=== PATIENT | female | born 1940 | race American Indian/Alaskan Native ===

== ENCOUNTER 2017-08-16 18:27 | Inpatient (IN) | payer MEDICARE ==
[2017-08-16 19:20] LABS: Basophils % (Auto) 0.5 % (0.0-1.8); Eosinophils % (Auto) 1.7 % (0.0-4.3); Hematocrit 42.4 % (30.3-42.9); Hemoglobin 14.4 gm/dl (10.1-14.3); Mean Corpuscular HGB Conc 34 % (30-34); Mean Corpuscular Hemoglobin 30 pg (28-32); Mean Corpuscular Volume 89 fl (79-97); Platelet Count 213 K/mm3 (140-440); Red Blood Count 4.75 M/mm3 (3.65-5.03); Red Cell Distribution Width 14.6 % (13.2-15.2); White Blood Count 7.1 K/mm3 (4.5-11.0)
[2017-08-16 19:38] LABS: Calcium 9.3 mg/dL (8.4-10.2); Chloride 92.4 mmol/L (98-107); Potassium 3.2 mmol/L (3.6-5.0)
[2017-08-16 20:02] LABS: Creatine Kinase MB 7.1 ng/mL (0.0-4.0)
[2017-08-16 20:22] LABS: INR 0.99 (0.87-1.13)
[2017-08-16 20:23] LABS: Partial Thromboplastin Time 28.1 Sec. (24.2-36.6)
--- NOTE | 2017-08-16 21:33 | XRay Report ---
FINAL REPORT PROCEDURE: XR CHEST ROUTINE 2V TECHNIQUE: PA and lateral chest radiographs were obtained. CPT 90296 HISTORY: chest pain COMPARISON: No prior studies are available for comparison. FINDINGS: Heart: Normal. Mediastinum/Vessels: Normal. Lungs/Pleural space: Lungs are clear and expanded. There are no infiltrates, effusions or pneumothoraces.. Bony thorax: No acute osseous abnormality. Other: IMPRESSION: There is no acute cardiopulmonary abnormality..
--- NOTE | 2017-08-16 22:18 | Emergency Department Report ---
ED Chest Pain HPI - General Chief Complaint: Chest Pain Stated Complaint: CHEST PAIN Time Seen by Provider: 08/16/17 22:12 Source: patient Mode of arrival: Ambulatory Limitations: No Limitations - History of Present Illness Initial Comments: Patient is a 77-year-old female that presents to the ER with complaints of chest pain shortness of breath and dizziness 1 week. Patient states her chest pain is going down her left arm.. He can also states she received a call from her doctor's office saying that she had a troponin of 7 and to come to the emergency room for further evaluation. MD Complaint: chest pain -: Gradual, days(s) Onset: during rest, during exertion Pain Location: substernal, left chest Pain Radiation: LUE Severity: moderate Severity scale (0 -10): 5 Quality: tightness, aching, heaviness, squeezing Consistency: constant Improves With: rest Worsens With: exertion Treatments Prior to Arrival: aspirin - Related Data On Oral Contraceptives: No Allergies Allergy/AdvReac Type Severity Reaction Status Date / Time No Known Allergies Allergy Unverified 08/16/17 18:48 Heart Score - HEART Score History: Slightly suspicious EKG: Normal Age: > 65 Risk factors: 1-2 risk factors Troponin: 1-3x normal limit HEART Score: 4 ED Review of Systems ROS: Stated complaint: CHEST PAIN Other details as noted in HPI Constitutional: no symptoms reported, see HPI Eyes: as per HPI ENT: as per HPI Respiratory: shortness of breath, SOB with exertion, SOB at rest Cardiovascular: chest pain, dyspnea on exertion Endocrine: no symptoms reported Gastrointestinal: as per HPI Genitourinary: as per HPI Musculoskeletal: as per HPI Skin: as per HPI Neurological: as per HPI Psychiatric: as per HPI ED Past Medical Hx - Past Medical History Previous Medical History?: Yes Hx Hypertension: Yes Hx Asthma: Yes - Surgical History Past Surgical History?: Yes Additional Surgical History: breast reduction 1998; - Social History Smoking Status: Never Smoker Substance Use Type: None ED Physical Exam - General Limitations: No Limitations General appearance: alert, in no apparent distress - Head Head exam: Present: atraumatic, normocephalic - Eye Eye exam: Present: normal appearance - ENT ENT exam: Present: normal exam, mucous membranes moist - Neck Neck exam: Present: normal inspection - Respiratory Respiratory exam: Present: normal lung sounds bilaterally. Absent: respiratory distress - Cardiovascular Cardiovascular Exam: Present: regular rate, normal rhythm. Absent: systolic murmur, diastolic murmur, rubs, gallop - GI/Abdominal GI/Abdominal exam: Present: soft, normal bowel sounds - Extremities Exam Extremities exam: Present: normal inspection - Back Exam Back exam: Present: normal inspection - Neurological Exam Neurological exam: Present: alert, oriented X3 - Psychiatric Psychiatric exam: Present: normal affect, normal mood - Skin Skin exam: Present: warm, dry, intact, normal color. Absent: rash ED Course Vital Signs 08/16/17 08/16/17 08/16/17 18:48 21:05 22:06 Temperature 98.5 F 98.4 F Pulse Rate 88 68 Respiratory 16 18 Rate Blood Pressure 148/77 153/83 Blood Pressure 153/83 [Left] O2 Sat by Pulse 93 94 Oximetry 08/16/17 08/16/17 08/16/17 22:10 22:15 22:21 Temperature Pulse Rate 65 66 Respiratory 29 H 26 H Rate Blood Pressure 153/83 153/83 153/83 Blood Pressure [Left] O2 Sat by Pulse 96 96 96 Oximetry 08/16/17 08/16/17 08/16/17 22:25 22:31 22:35 Temperature Pulse Rate 67 67 Respiratory 23 15 Rate Blood Pressure 153/83 176/89 176/89 Blood Pressure [Left] O2 Sat by Pulse 96 93 95 Oximetry 08/16/17 08/16/17 08/16/17 22:41 22:45 22:51 Temperature Pulse Rate 68 63 67 Respiratory 24 32 H 13 Rate Blood Pressure 176/89 176/89 153/83 Blood Pressure [Left] O2 Sat by Pulse 95 95 97 Oximetry 08/16/17 08/16/17 08/16/17 22:55 23:00 23:05 Temperature Pulse Rate 79 71 68 Respiratory 32 H 29 H 27 H Rate Blood Pressure 153/83 175/94 175/94 Blood Pressure [Left] O2 Sat by Pulse 93 90 96 Oximetry 08/16/17 08/16/17 08/16/17 23:11 23:15 23:21 Temperature Pulse Rate 79 76 79 Respiratory 29 H 30 H 20 Rate Blood Pressure 175/94 175/94 175/94 Blood Pressure [Left] O2 Sat by Pulse 94 94 93 Oximetry 08/16/17 08/16/17 23:25 23:30 Temperature Pulse Rate 69 65 Respiratory 34 H 16 Rate Blood Pressure 175/94 166/92 Blood Pressure [Left] O2 Sat by Pulse 94 91 Oximetry ED Medical Decision Making - Lab Data Result diagrams: 08/16/17 19:05 08/16/17 19:05 - EKG Data EKG shows normal: sinus rhythm Rate: normal - EKG Data Interpretation: no acute changes, normal EKG - Radiology Data Radiology results: image reviewed interpreted by me: No acute findings on chest x-ray - Medical Decision Making Patient to be admitted to hospital. Discussed case with hospitalist. Also discussed case with on-call optical coating technician - Differential Diagnosis mi, angina, sob, cp. Critical care attestation.: If time is entered above; I have spent that time in minutes in the direct care of this critically ill patient, excluding procedure time. ED Disposition Clinical Impression: Chest pain, SOB (shortness of breath), Dizziness, Elevated troponin, NSTEMI ( non-ST elevated myocardial infarction) Disposition: OP ADMIT IP TO THIS HOSP Is pt being admited?: Yes Does the pt Need Aspirin: No Condition: Critical
[2017-08-16] MEDS ORDERED: ASPIRIN PO ONE (23:09)
--- NOTE | 2017-08-16 23:35 | History and Physical Report ---
History of Present Illness Date of examination: 08/16/17 Chief complaint: chest pain / dizziness / SOB History of present illness: Patient is a 77-year-old female that presents to the ER with complaints of chest pain shortness of breath and dizziness 1 week. Patient states her chest pain is going down her left arm. She had been seen at her primary care physician's office yesterday and She had labs drawn. She was called by her doctor's office and told that her troponin was greater than 7 and she had to go to the emergency room urgently. She states that she has been feeling bad for the past 1 week with the intermittent epigastric abdominal pain nausea and dizziness for the past 1 week. The periods of a disease nonspecific no aggravation or relieving factors she does say that she feels much better when she is resting. There is no set pattern to her symptoms otherwise but since yesterday she states that her left arm has been tingling and hardening and describes the pain as dull achy type of pain about 4 out of 10 in severity. Past History Past Medical History: hypertension, other (asthma) Past Surgical History: Other (breast reduction surgery in 1998) Social history: no significant social history. denies: smoking, alcohol abuse, prescription drug abuse Medications and Allergies Allergies Allergy/AdvReac Type Severity Reaction Status Date / Time No Known Allergies Allergy Unverified 08/16/17 18:48 Review of Systems All systems: negative (as mentioned in HPI) Exam - Physical Exam Narrative exam: General - the patient is awake alert oriented to time place and person evidence of acute distress HEENT - head is atraumatic normocephalic pupils equal round reactive to light and accommodation extraocular movements intact oral mucosa moist oropharynx. Neck is supple no JVD no thyromegaly or lymphadenopathy no carotid bruit Heart - regular rate and rhythm no murmurs or gallops PMI not displaced Lungs - clear to auscultation bilaterally nonlabored breathing normal chest wall expansion Abdomen - is obese soft nondistended nontender normoactive bowel sounds no hepatosplenomegaly no abdominal masses or bruit appreciated Extremities - no cyanosis or edema Musculoskeletal system - normal range of movement all joints no obvious deformity or tenderness to palpation Neurological - grossly intact and nonfocal Skin - warm and dry no rashes or bruises Psychiatric - appropriate mood and affect Vascular - system no lymphadenopathy distal pulses 2+ bilaterally - Constitutional Vitals: Temp Pulse Resp BP Pulse Ox 98.4 F 68 18 153/83 94 08/16/17 21:05 08/16/17 21:05 08/16/17 21:05 08/16/17 21:05 08/16/17 21:05 Results - Labs CBC & Chem 7: 08/16/17 19:05 08/16/17 19:05 Labs: Laboratory Last Values WBC 7.1 K/mm3 (4.5-11.0) 08/16/17 19:05 RBC 4.75 M/mm3 (3.65-5.03) 08/16/17 19:05 Hgb 14.4 gm/dl (10.1-14.3) H 08/16/17 19:05 Hct 42.4 % (30.3-42.9) 08/16/17 19:05 MCV 89 fl (79-97) 08/16/17 19:05 MCH 30 pg (28-32) 08/16/17 19:05 MCHC 34 % (30-34) 08/16/17 19:05 RDW 14.6 % (13.2-15.2) 08/16/17 19:05 Plt Count 213 K/mm3 (140-440) 08/16/17 19:05 Lymph % (Auto) 38.1 % (13.4-35.0) H 08/16/17 19:05 [place] % (Auto) 6.5 % (0.0-7.3) 08/16/17 19:05 Eos % (Auto) 1.7 % (0.0-4.3) 08/16/17 19:05 Baso % (Auto) 0.5 % (0.0-1.8) 08/16/17 19:05 Lymph # 2.7 K/mm3 (1.2-5.4) 08/16/17 19:05 [place] # 0.5 K/mm3 (0.0-0.8) 08/16/17 19:05 Eos # 0.1 K/mm3 (0.0-0.4) 08/16/17 19:05 Baso # 0.0 K/mm3 (0.0-0.1) 08/16/17 19:05 Seg Neutrophils % 53.2 % (40.0-70.0) 08/16/17 19:05 Seg Neutrophils # 3.8 K/mm3 (1.8-7.7) 08/16/17 19:05 PT 13.6 Sec. (12.2-14.9) 08/16/17 19:05 INR 0.99 (0.87-1.13) 08/16/17 19:05 APTT 28.1 Sec. (24.2-36.6) 08/16/17 19:05 Sodium 137 mmol/L (137-145) 08/16/17 19:05 Potassium 3.2 mmol/L (3.6-5.0) L 08/16/17 19:05 Chloride 92.4 mmol/L (98-107) L 08/16/17 19:05 Carbon Dioxide 30 mmol/L (22-30) 08/16/17 19:05 Anion Gap 18 mmol/L 08/16/17 19:05 BUN 18 mg/dL (7-17) H 08/16/17 19:05 Creatinine 1.2 mg/dL (0.7-1.2) 08/16/17 19:05 Estimated GFR 53 ml/min 08/16/17 19:05 BUN/Creatinine Ratio 15 % 08/16/17 19:05 Glucose 155 mg/dL (65-100) H 08/16/17 19:05 Calcium 9.3 mg/dL (8.4-10.2) 08/16/17 19:05 Total Creatine Kinase 156 units/L (30-135) H 08/16/17 19:05 CK-MB (CK-2) 7.1 ng/mL (0.0-4.0) H 08/16/17 19:05 CK-MB (CK-2) Rel Index 4.5 (0-4) H 08/16/17 19:05 Troponin T 0.421 ng/mL (0.00-0.029) H* 08/16/17 19:05 NT-Pro-B Natriuret Pep 1043 pg/mL (0-900) H 08/16/17 19:05 Triglycerides 150 mg/dL (2-149) H 08/16/17 19:05 Cholesterol 209 mg/dL (50-199) H 08/16/17 19:05 LDL Cholesterol Direct 97 mg/dL (50-130) 08/16/17 19:05 HDL Cholesterol 82 mg/dL (40-59) H 08/16/17 19:05 Cholesterol/HDL Ratio 2.54 % 08/16/17 19:05 - Imaging and Cardiology Imaging and Cardiology: EKG showing normal sinus rhythm negative for acute ischemia or other arrhythmia some Q waves in anterior leads and age indeterminate anterior infarct otherwise nonspecific borderline EKG Chest x-ray showed no acute process Assessment and Plan Assessment and plan: Assessment and plan - * Non-ST elevation SD with elevated troponin * Chest pain / shortness of breath likely secondary to above * Hyperglycemia without history of diabetes * Hypokalemia - replace and monitor * Hypertension blood pressure is currently borderline low * Obesity Plan - We'll admit the patient to medical floor with the cardiac telemetry Check serial cardiac enzymes We will follow the chest pain protocol, and non-ST elevation SD protocol patient was discussed with cardiology by the ER physician and she will be started on the heparin drip and aspirin will be added currently no clinical evidence of acute congestive heart failure. We will hold off on Lasix for now as per cardiology recommendations. Hold off on her home antihypertensive medications Will check lipid panel and a hemoglobin A1c monitor CBC and electrolytes Replace electrolytes when necessary as per protocol DVT GI prophylaxis as altered Monitor and follow the patient closely Advance Directives: No VTE prophylaxis?: Chemical, Mechanical Plan of care discussed with patient/family: Yes
[2017-08-17] MEDS ORDERED: AMBIEN PO PRN (01:40)
[2017-08-17] MEDS ORDERED: DULCOLAX PR PRN (01:40)
[2017-08-17] MEDS ORDERED: TYLENOL PO PRN (01:40)
[2017-08-17] MEDS ORDERED: SODIUM CHLORIDE FLUSH SYRINGE 10 ML IV PRN (01:40)
[2017-08-17] MEDS ORDERED: PROVENTIL IH PRN (01:40)
[2017-08-17] MEDS ORDERED: NITROSTAT SL PRN (01:40)
[2017-08-17] MEDS ORDERED: ALUM-MAG HYDROX-SIMETH 200-200-20MG/5ML PO PRN (01:40)
[2017-08-17] MEDS ORDERED: MILK OF MAGNESIA PO PRN (01:40)
[2017-08-17] MEDS ORDERED: ZOFRAN IV PRN (01:40)
[2017-08-17] MEDS ORDERED: NACL 0.9% 1000 ML 1,000 ML ONE (02:35)
[2017-08-17] MEDS ORDERED: MORPHINE ONE (02:37)
[2017-08-17] MEDS: MORPHINE IV PRN ×2 (02:39→04:35)
[2017-08-17] MEDS ORDERED: APRESOLINE IV PRN (02:48)
[2017-08-17] MEDS ORDERED: HEPARIN 10,000 UNITS/10 ML IV ONE (02:52)
[2017-08-17] MEDS: HEPARIN/ 0.45% NACL-25,000 UNIT/500 ML 25,000 UNIT/500 ML BAG IV SCH (04:20)
[2017-08-17] MEDS: NACL 0.9% 1000 ML 1,000 ML IV SCH (04:20)
[2017-08-17 07:32] LABS: Hematocrit 39.8 % (30.3-42.9); Hemoglobin 13.2 gm/dl (10.1-14.3)
[2017-08-17 07:43] LABS: INR 1.1 (0.87-1.13)
[2017-08-17 08:48] LABS: Partial Thromboplastin Time 121.8 Sec. (24.2-36.6)
[2017-08-17] MEDS: ZESTRIL PO SCH (10:00)
[2017-08-17] MEDS: PROTONIX PO SCH (10:00)
--- NOTE | 2017-08-17 17:15 | Progress Note ---
Assessment and Plan Assessment and plan: 77 years old obese -[place] Island[place] female weight hypertension admitted for chest pain 1. Non-STEMI EKG with no acute ischemic changes, but troponin elevated, and trending up Started on heparin drip along complete antiplatelet therapy, statin, IMANI inhibitor; no beta brenden due to bradycardia; sublingual nitroglycerin as needed Cardiology consulted and scheduled for cardiac cath in a.m. 2. Hypertension On lisinopril and prn IV hydralazine Monitor BP closely 3. Hyperglycemia Without the diagnosis of diabetes Likely stress reaction Monitor BS SSI as needed 4. Hypokalemia Replete and recheck 5. Obesity Consulted regarding importance of losing weight 6. DVT prophylaxis Currently on heparin drip for #1 History Interval history: No chest pain at this time; scheduled for cardiac cath in a.m. Hospitalist Physical - Constitutional Vitals: Temp Pulse Resp BP Pulse Ox 97.6 F 49 L 32 H 119/65 98 08/17/17 09:00 08/17/17 09:00 08/17/17 10:00 08/17/17 09:00 08/17/17 10:00 General appearance: Present: no acute distress, obese - EENT Eyes: Present: PERRL, EOM intact. Absent: scleral icterus, conjunctival injection - Neck Neck: Present: supple, normal ROM. Absent: masses or JVD - Respiratory Respiratory effort: normal Respiratory: bilateral: CTA, negative: rales, rhonchi - Cardiovascular Rhythm: other (bradycardic) Heart Sounds: Present: S1 & S2. Absent: systolic murmur - Extremities Extremities: no ischemia - Abdominal General gastrointestinal: soft, non-tender, non-distended, normal bowel sounds - Psychiatric Psychiatric: cooperative - Neurologic Neurologic: CNII-XII intact, no focal deficits Results - Labs CBC & Chem 7: 08/17/17 06:56 08/16/17 19:05 Labs: Laboratory Last Values WBC 7.1 K/mm3 (4.5-11.0) 08/16/17 19:05 RBC 4.75 M/mm3 (3.65-5.03) 08/16/17 19:05 Hgb 13.2 gm/dl (10.1-14.3) 08/17/17 06:56 Hct 39.8 % (30.3-42.9) 08/17/17 06:56 MCV 89 fl (79-97) 08/16/17 19:05 MCH 30 pg (28-32) 08/16/17 19:05 MCHC 34 % (30-34) 08/16/17 19:05 RDW 14.6 % (13.2-15.2) 08/16/17 19:05 Plt Count 211 K/mm3 (140-440) 08/17/17 06:56 Lymph % (Auto) 38.1 % (13.4-35.0) H 08/16/17 19:05 [place] % (Auto) 6.5 % (0.0-7.3) 08/16/17 19:05 Eos % (Auto) 1.7 % (0.0-4.3) 08/16/17 19:05 Baso % (Auto) 0.5 % (0.0-1.8) 08/16/17 19:05 Lymph # 2.7 K/mm3 (1.2-5.4) 08/16/17 19:05 [place] # 0.5 K/mm3 (0.0-0.8) 08/16/17 19:05 Eos # 0.1 K/mm3 (0.0-0.4) 08/16/17 19:05 Baso # 0.0 K/mm3 (0.0-0.1) 08/16/17 19:05 Seg Neutrophils % 53.2 % (40.0-70.0) 08/16/17 19:05 Seg Neutrophils # 3.8 K/mm3 (1.8-7.7) 08/16/17 19:05 PT 14.8 Sec. (12.2-14.9) 08/17/17 06:56 INR 1.10 (0.87-1.13) 08/17/17 06:56 APTT 121.8 Sec. (24.2-36.6) H* 08/17/17 06:56 Heparin Anti-Xa Level 0.68 U.I./ml (0.3-0.7) 08/17/17 10:28 Sodium 137 mmol/L (137-145) 08/16/17 19:05 Potassium 3.2 mmol/L (3.6-5.0) L 08/16/17 19:05 Chloride 92.4 mmol/L (98-107) L 08/16/17 19:05 Carbon Dioxide 30 mmol/L (22-30) 08/16/17 19:05 Anion Gap 18 mmol/L 08/16/17 19:05 BUN 18 mg/dL (7-17) H 08/16/17 19:05 Creatinine 1.2 mg/dL (0.7-1.2) 08/16/17 19:05 Estimated GFR 53 ml/min 08/16/17 19:05 BUN/Creatinine Ratio 15 % 08/16/17 19:05 Glucose 155 mg/dL (65-100) H 08/16/17 19:05 Hemoglobin A1c 5.8 % (4-6) 08/17/17 01:42 Calcium 9.3 mg/dL (8.4-10.2) 08/16/17 19:05 Total Creatine Kinase 156 units/L (30-135) H 08/16/17 19:05 CK-MB (CK-2) 7.1 ng/mL (0.0-4.0) H 08/16/17 19:05 CK-MB (CK-2) Rel Index 4.5 (0-4) H 08/16/17 19:05 Troponin T 0.674 ng/mL (0.00-0.029) H* 08/17/17 06:56 NT-Pro-B Natriuret Pep 1043 pg/mL (0-900) H 08/16/17 19:05 Triglycerides 150 mg/dL (2-149) H 08/16/17 19:05 Cholesterol 209 mg/dL (50-199) H 08/16/17 19:05 LDL Cholesterol Direct 97 mg/dL (50-130) 08/16/17 19:05 HDL Cholesterol 82 mg/dL (40-59) H 08/16/17 19:05 Cholesterol/HDL Ratio 2.54 % 08/16/17 19:05 - Imaging and Cardiology EKG: image reviewed Chest x-ray: image reviewed
--- NOTE | 2017-08-17 19:01 | Consultation ---
CARDIOLOGY CONSULTATION REASON FOR CONSULTATION: Advice and opinion regarding abnormal troponin. HISTORY OF PRESENT ILLNESS: The patient is a very pleasant 77-year-old female seen on telemetry, is at bedside. She has a history of hypertension, asthma, and hyperlipidemia. Her primary care physician is at [facility]. Seen on telemetry. No chest pain, has not had chest pain since she is brought here, was apparently and had labs drawn at her primary care office and had an abnormal troponin and sent to the Emergency Room. No syncope or presyncope. No fevers, chills, nausea or vomiting. She feels fine, watching television. PAST MEDICAL HISTORY: As aforementioned. FAMILY HISTORY: No family history of premature coronary disease. SOCIAL HISTORY: She is a nonsmoker, nondrinker. ALLERGIES: No known drug, food, or environmental allergies. REVIEW OF SYSTEMS: As per HPI. PHYSICAL EXAMINATION: VITAL SIGNS: Blood pressure is 120/60. She is afebrile. Tele reveals sinus rhythm in the 60s and 70s, O2 sats 98% on room air. HEENT: Sclerae are anicteric. PERRLA. NECK: Supple. No mass or JVD. CHEST: Clear to auscultation bilaterally. Good air movement. CARDIOVASCULAR: Regular rate and rhythm, S1, S2. ABDOMEN: Soft, nontender, nondistended. Normoactive bowel sounds in 4 quadrants. No mass or bruits. EXTREMITIES: No cyanosis, clubbing, or edema. Good peripheral pulses. SKIN: Warm, dry and intact. No rashes. LABORATORY DATA: Creatinine is 1.2, total CK 156. Troponin 0.4, 0.5, 0.6 and 0.6. ProBNP 1043. LDL is 97, HDL is 82. EKG reveals normal sinus rhythm, normal axis. Mild skipped ST depression inferolaterally. CONCLUSIONS: This is a pleasant 77-year-old female: Chest pain several days ago consistent with non-ST elevation myocardial infarction, now chest pain free with a relatively flat troponin pattern, no acute ST segment shift noted. She is now clinically stable on IV heparin, aspirin, statin therapy. I discussed the options with her including medical management and invasive approach. She would like to proceed with invasive approach. PROCEDURE: Left heart catheterization in a.m. Continue the blood pressure control with IMANI inhibition hold off on beta blockers, heart rate is running in the 60s. Continue statin therapy, aspirin and heparin. We will check an echocardiogram and watch her closely. Again, she is chest pain free and clinically stable. Further plans continued on cath results. Thank you for this consultation. Discussed with Dr. Vail as well. Follow further plans contingent upon hospital course. JOB# [id number] SBM/NTS
[2017-08-17] MEDS: PERCOCET 5/325 PO PRN (21:20)
[2017-08-18 04:35] LABS: Basophils % (Auto) 0.5 % (0.0-1.8); Hematocrit 37.6 % (30.3-42.9); Hemoglobin 12.8 gm/dl (10.1-14.3); Mean Corpuscular HGB Conc 34 % (30-34); Mean Corpuscular Hemoglobin 31 pg (28-32); Mean Corpuscular Volume 90 fl (79-97); Platelet Count 168 K/mm3 (140-440); Red Blood Count 4.17 M/mm3 (3.65-5.03); Red Cell Distribution Width 14.9 % (13.2-15.2); White Blood Count 7.4 K/mm3 (4.5-11.0)
[2017-08-18 04:43] LABS: Alanine Aminotransferase 20 units/L (7-56); Albumin 3.4 g/dL (3.9-5); Albumin/Globulin Ratio 1.1 %; Alkaline Phosphatase 70 units/L (35-129); Anion Gap 14 mmol/L; BUN/Creatinine Ratio 20; Blood Urea Nitrogen 16 mg/dL (7-17); Calcium 8.4 mg/dL (8.4-10.2); Carbon Dioxide 32 mmol/L (22-30); Chloride 100.9 mmol/L (98-107); Glucose 129 mg/dL (65-100); Potassium 3.8 mmol/L (3.6-5.0); Sodium 143 mmol/L (137-145); Total Protein 6.4 g/dL (6.3-8.2)
[2017-08-18] MEDS: HEPARIN/ 0.45% NACL-25,000 UNIT/500 ML 25,000 UNIT/500 ML BAG IV SCH (06:29)
[2017-08-18] MEDS: NACL 0.9% 1000 ML 1,000 ML IV SCH (06:31)
--- NOTE | 2017-08-18 09:40 | Progress Note ---
Assessment and Plan nstemi htn chol acute diastolic dysfunction acute respiratory failure rec: cardiac cath today, explained the risk and benifits to pt and lhc via right groin, lt main patent lad mid 100%, lcx patent, ramus patent, om1 30-40%, rca mid 40-50% right to left collaterals and ef 45% anterior apical hypokinesis and pci of lad with charanjit resolute 2.75 x 30mm post 3.25 x 12 mm, post pci care asa, plavix, statin. bp control Subjective Date of service: 08/18/17 Principal diagnosis: nstemi Interval history: pt is chest pain free this am Objective Vital Signs Temp Pulse Resp Resp BP BP Pulse Ox 08/18/17 05:35 99.1 F 85 20 131/59 08/18/17 00:56 99.4 F 70 20 138/64 08/18/17 00:03 76 08/17/17 22:00 20 20 99 08/17/17 21:20 20 08/17/17 20:04 99.7 F H 79 20 144/77 08/17/17 17:00 98.0 F 70 18 162/88 96 08/17/17 10:00 49 L 32 H 119/65 98 - Physical Examination General: Appears Well HEENT: Positive: PERRL, EOMI Neck: Positive: neck supple Cardiac: Positive: Reg Rate and Rhythm Lungs: Positive: clear to auscultation Neuro: Positive: Grossly Intact Abdomen: /Rectal: Normal Prostate, No Masses Skin: Musculoskeletal: No Fluid Collection, No Pain, Normal Range of Motion Gait: Normal Gait Extremities: - Labs and Meds Cardiac Enzymes 08/18/17 Range/Units 04:06 AST 33 (5-40) units/L CBC 08/18/17 Range/Units 04:06 WBC 7.4 (4.5-11.0) K/mm3 RBC 4.17 (3.65-5.03) M/mm3 Hgb 12.8 (10.1-14.3) gm/dl Hct 37.6 (30.3-42.9) % Plt Count 168 (140-440) K/mm3 Lymph # 2.7 (1.2-5.4) K/mm3 [place] # 0.6 (0.0-0.8) K/mm3 Eos # 0.1 (0.0-0.4) K/mm3 Baso # 0.0 (0.0-0.1) K/mm3 Comprehensive Metabolic Panel 08/18/17 Range/Units 04:06 Sodium 143 (137-145) mmol/L Potassium 3.8 (3.6-5.0) mmol/L Chloride 100.9 (98-107) mmol/L Carbon Dioxide 32 H (22-30) mmol/L BUN 16 (7-17) mg/dL Creatinine 0.8 (0.7-1.2) mg/dL Glucose 129 H (65-100) mg/dL Calcium 8.4 (8.4-10.2) mg/dL AST 33 (5-40) units/L ALT 20 (7-56) units/L Alkaline Phosphatase 70 (35-129) units/L Total Protein 6.4 (6.3-8.2) g/dL Albumin 3.4 L (3.9-5) g/dL - Imaging and Cardiology EKG: image reviewed Echo: report reviewed Cardiac cath: report reviewed (hc via right groin, lt main patent lad mid 100%, lcx patent, ramus patent, om1 30-40%, rca mid 40-50% right to left collaterals and ef 45% anterior apical hypokinesis and pci of lad with charanjit resolute 2.75 x 30mm post 3.25 x 12 mm,) - Telemetry EKG Rhythm: Sinus Rhythm
[2017-08-18] MEDS ORDERED: ECOTRIN PO SCH (10:00)
[2017-08-18] MEDS ORDERED: PNEUMOVAX 23 IM ONE (12:00)
[2017-08-18] MEDS ORDERED: HEPARIN 10,000 UNITS/10 ML ONE (12:23)
[2017-08-18] MEDS ORDERED: CALAN ONE (12:23)
[2017-08-18] MEDS ORDERED: XYLOCAINE 2% INFILTRATI ONE ×2 (12:24→12:30)
[2017-08-18] MEDS ORDERED: SUBLIMAZE ONE (12:24)
[2017-08-18] MEDS ORDERED: VERSED ONE (12:24)
[2017-08-18] MEDS ORDERED: NITROGLYCERIN SYRINGE 3 ML ONE ×2 (12:24→13:03)
[2017-08-18] MEDS ORDERED: HEPARIN/NS 5000 UNIT/500ML(CATH LAB) 1,000 ML IR ONE (12:26)
[2017-08-18] MEDS ORDERED: SUBLIMAZE IV ONE (12:27)
[2017-08-18] MEDS ORDERED: NITROGLYCERIN SYRINGE UD ONE ×2 (12:32→12:51)
[2017-08-18] MEDS ORDERED: CALAN IV ONE (12:32)
[2017-08-18] MEDS ORDERED: HEPARIN 10,000 UNITS/10 ML IV ONE (12:32)
[2017-08-18] MEDS ORDERED: NACL 0.9% 100 ML ONE (12:47)
[2017-08-18] MEDS ORDERED: ANGIOMAX IV ONE ×2 (12:47→12:50)
[2017-08-18] MEDS ORDERED: NITROGLYCERIN SYRINGE INTRA-CORO ONE (13:15)
[2017-08-18] MEDS ORDERED: PLAVIX ONE (13:27)
[2017-08-18] MEDS ORDERED: ALUM-MAG HYDROX-SIMETH 200-200-20MG/5ML ONE (13:28)
[2017-08-18] MEDS ORDERED: ZOFRAN IV ONE ×2 (13:29→14:03)
[2017-08-18] MEDS ORDERED: ZOFRAN ONE ×2 (13:30→13:49)
[2017-08-18] MEDS ORDERED: AGGRASTAT DRIP (12.5 MG/250 ML) 12,500 MCG/250 ML BAG IV ONE (13:49)
[2017-08-18] MEDS ORDERED: AGGRASTAT DRIP (12.5 MG/250 ML) 12,500 MCG/250 ML BAG IV SCH (14:00)
[2017-08-18] MEDS ORDERED: ZESTRIL PO SCH ×2 (14:30→18:00)
[2017-08-18] MEDS ORDERED: AGGRASTAT (BOLUS) IV ONE (14:52)
[2017-08-18] MEDS: MORPHINE IV PRN (14:59)
[2017-08-18] MEDS ORDERED: NORVASC PO SCH (15:00)
[2017-08-18] MEDS ORDERED: MORPHINE ONE (15:01)
--- NOTE | 2017-08-18 15:27 | Cat Scan Report ---
CT OF THE ABDOMEN AND PELVIS WITHOUT CONTRAST HISTORY: Retroperitoneal hemorrhage. TECHNIQUE: Helical CT without contrast. Sagittal and coronal reformatted images. FINDINGS: Within the limits of a noncontrast exam, the abdominal and pelvic viscera are within normal limits. The liver, biliary system, pancreas, spleen, kidneys, adrenal glands and bladder are unremarkable. The bowel loops are normal caliber and wall thickness. Normal appendix. The aorta is normal caliber. There is residual IV contrast in the renal collecting systems and bladder. No ascites, bulky adenopathy or inflammatory changes. Right femoral catheter terminates in the right external iliac artery. Hysterectomy changes are suspected. The lung bases are clear. Normal heart size. No suspicious bony lesion. IMPRESSION: Unremarkable noncontrast CT of the abdomen and pelvis. There is no evidence for retroperitoneal hemorrhage.
--- NOTE | 2017-08-18 16:06 | Cardiac Catherization Report ---
LEFT HEART CATHETERIZATION/PERCUTANEOUS CORONARY INTERVENTION/ INTRAVASCULAR ULTRASOUND CLINICAL PRESENTATION: This is a 77-year-old -[place] female with hypertension, hyperlipidemia, was presenting [facility] with chest pain, had abnormal troponins and was sent to the hospital for evaluation, which she was treated medically with heparin, beta blockers, aspirin and was chest pain free. Left heart catheterization was performed initially by the right radial approach, sterile technique, local anesthesia, 6-Chinese radial sheath inserted and given the patient's recurrent radial loop, unable to advance the wire. So, radial approach was abandoned and 5-Chinese groin sheath was sewn in, in the right common femoral artery, sterile technique, local anesthesia, 5-Chinese groin sheath inserted. PROCEDURE FINDINGS: Left system engaged with a JL3.5 catheter. Left main is large and patent, then bifurcates into a medium caliber LAD, proximal mid is 100% and ramus is a small to medium caliber vessel, patent with mild luminal irregularities. Circumflex and AV groove is a byrxi-lz-wedqpt caliber vessel, patent with moderate tortuosity, it goes into an OM1, which is a orlhm-mt-ptkkzi caliber vessel, has a proximal 30-40% lesion. RCA engaged with JR4 catheter, is medium caliber dominant vessel, moderate to severe tortuosity. Mid diffuse 40-50% with moderate tortuosity of vessels but you see collaterals from the PDA feeding via the septals into the medium caliber LAD and filling all the way up to the mid section of the LAD, so short occlusion is noted. LV gram done in the [place] and [place] view shows mild LV dysfunction, EF 45% with anterior apical hypokinesis. LVEDP at 25-30 mmHg, LV is 162. Aortic is 162/81. No significant gradient across the aortic valve. In view of the patient's short occlusion and non-ST elevation [place], proceed with percutaneous coronary intervention of the LAD; 1. Change out the 5-Chinese groin sheath with a 6-Chinese sheath. 2. Engage the left system with EBU 3.5 guiding catheter. 3. Tried to cross where short [place] wire was unable to. 4. Then used a long [place] wire and over the wire, 1.5 x 6.0 balloon, still unable to cross and changed that to ____ able to cross into the distal LAD, placed a balloon into the distal LAD, removed coronary wire ____ angiogram through the balloon confirmed intra-arterial system. 5. Then placed a long [place] wire in and ballooned with a 1.5 x 6.0 in the mid LAD x 3 inflations at 12 atmospheres each. 6. Repeat angiogram showed stenosis from 100% down to 80%, but SHELLY 3 flow in the LAD. 4. The balloon further was 2.0 x 15 balloon x 2 inflations. 5. Intravascular ultrasound showed distal reference vessel of 2.75 x 3.0, proximal 3.2 x 3.0. 6. Stented proximal mid LAD with a drug-eluting Resolute 2.75 x 30 mm inflated at 15 atmospheres. 7. Then post-dilated the mid and proximal portion of the stent with a noncompliant 3.25 x 12 at 12 atmospheres x 2 inflations. 8. Repeat angiogram with excellent angiographic results, SHELLY 3 flow in the LAD reduced stenosis 0%. No perforation or dissection noted. Multiple angiograms without the coronary wire revealed continued SHELLY 3 flow, good stent apposition and expansion noted and SHELLY 3 flow in the LAD from 0 and reduced stenosis from 100%, down to 0%. 9. A 6-Chinese guiding catheter taken over guidewire. 6-Chinese groin sheath was sewn in. No hematoma. No bleeding. SUMMARY: 1. Successful PCI ____ 100% LAD with a drug-eluting Resolute 2.75 x 30 mm postdilated with 3.25 x 12 in the proximal mid portion of the stent, left main patent, circumflex, patent AV groove. Ramus is patent. OM1 30-40%. RCA mid 40-50%. 2. Borderline LV function, EF of 45-50% with anterior apical hypokinesis. 3. Post-PCI care with aspirin, Plavix, statin and beta brenden therapy and discussed in detail with the patient's primary solar sales rep. JOB# [id number] SUSANA/BEV
[2017-08-18] MEDS ORDERED: NACL 0.9% 1000 ML 1,000 ML ONE (16:29)
[2017-08-18] MEDS: PERCOCET 5/325 PO PRN (17:37)
[2017-08-18] MEDS ORDERED: PERCOCET 5/325 ONE (17:39)
[2017-08-18] MEDS: NORVASC PO SCH (17:44)
--- NOTE | 2017-08-18 18:10 | Progress Note ---
Assessment and Plan Assessment and plan: 77 years old obese -[place] female weight hypertension admitted for chest pain 1. Non-STEMI EKG with no acute ischemic changes, but troponin elevated, and trending up Started on heparin drip along complete antiplatelet therapy, statin, IMANI inhibitor; no beta brenden due to bradycardia; sublingual nitroglycerin as needed Cardiology consulted and underwent cardiac cath today 2. Hypertension On lisinopril and prn IV hydralazine Monitor BP closely 3. Hyperglycemia Without the diagnosis of diabetes Likely stress reaction Monitor BS SSI as needed 4. Hypokalemia Replete and recheck 5. Obesity Consulted regarding importance of losing weight 6. DVT prophylaxis Currently on heparin drip for #1 History Interval history: s/p cardiac cath; doing well Hospitalist Physical - Constitutional Vitals: Temp Pulse Resp BP Pulse Ox 97.9 F 79 17 163/91 96 08/18/17 14:06 08/18/17 17:53 08/18/17 17:47 08/18/17 17:53 08/18/17 17:47 General appearance: Present: no acute distress, obese Results - Labs CBC & Chem 7: 08/18/17 04:06 08/18/17 04:06 Labs: Laboratory Last Values WBC 7.4 K/mm3 (4.5-11.0) 08/18/17 04:06 RBC 4.17 M/mm3 (3.65-5.03) 08/18/17 04:06 Hgb 12.8 gm/dl (10.1-14.3) 08/18/17 04:06 Hct 37.6 % (30.3-42.9) 08/18/17 04:06 MCV 90 fl (79-97) 08/18/17 04:06 MCH 31 pg (28-32) 08/18/17 04:06 MCHC 34 % (30-34) 08/18/17 04:06 RDW 14.9 % (13.2-15.2) 08/18/17 04:06 Plt Count 168 K/mm3 (140-440) 08/18/17 04:06 Lymph % (Auto) 36.3 % (13.4-35.0) H 08/18/17 04:06 [place] % (Auto) 8.0 % (0.0-7.3) H 08/18/17 04:06 Eos % (Auto) 2.0 % (0.0-4.3) 08/18/17 04:06 Baso % (Auto) 0.5 % (0.0-1.8) 08/18/17 04:06 Lymph # 2.7 K/mm3 (1.2-5.4) 08/18/17 04:06 [place] # 0.6 K/mm3 (0.0-0.8) 08/18/17 04:06 Eos # 0.1 K/mm3 (0.0-0.4) 08/18/17 04:06 Baso # 0.0 K/mm3 (0.0-0.1) 08/18/17 04:06 Seg Neutrophils % 53.2 % (40.0-70.0) 08/18/17 04:06 Seg Neutrophils # 3.9 K/mm3 (1.8-7.7) 08/18/17 04:06 PT 14.8 Sec. (12.2-14.9) 08/17/17 06:56 INR 1.10 (0.87-1.13) 08/17/17 06:56 APTT 121.8 Sec. (24.2-36.6) H* 08/17/17 06:56 Heparin Anti-Xa Level < 0.10 U.I./ml (0.3-0.7) L 08/18/17 11:14 Sodium 143 mmol/L (137-145) 08/18/17 04:06 Potassium 3.8 mmol/L (3.6-5.0) 08/18/17 04:06 Chloride 100.9 mmol/L (98-107) 08/18/17 04:06 Carbon Dioxide 32 mmol/L (22-30) H 08/18/17 04:06 Anion Gap 14 mmol/L 08/18/17 04:06 BUN 16 mg/dL (7-17) 08/18/17 04:06 Creatinine 0.8 mg/dL (0.7-1.2) 08/18/17 04:06 Estimated GFR > 60 ml/min 08/18/17 04:06 BUN/Creatinine Ratio 20 % 08/18/17 04:06 Glucose 129 mg/dL (65-100) H 08/18/17 04:06 Hemoglobin A1c 5.8 % (4-6) 08/17/17 01:42 Calcium 8.4 mg/dL (8.4-10.2) 08/18/17 04:06 Total Bilirubin 0.30 mg/dL (0.1-1.2) 08/18/17 04:06 AST 33 units/L (5-40) 08/18/17 04:06 ALT 20 units/L (7-56) 08/18/17 04:06 Alkaline Phosphatase 70 units/L (35-129) 08/18/17 04:06 Total Creatine Kinase 156 units/L (30-135) H 08/16/17 19:05 CK-MB (CK-2) 7.1 ng/mL (0.0-4.0) H 08/16/17 19:05 CK-MB (CK-2) Rel Index 4.5 (0-4) H 08/16/17 19:05 Troponin T 0.674 ng/mL (0.00-0.029) H* 08/17/17 06:56 NT-Pro-B Natriuret Pep 1043 pg/mL (0-900) H 08/16/17 19:05 Total Protein 6.4 g/dL (6.3-8.2) 08/18/17 04:06 Albumin 3.4 g/dL (3.9-5) L 08/18/17 04:06 Albumin/Globulin Ratio 1.1 % 08/18/17 04:06 Triglycerides 150 mg/dL (2-149) H 08/16/17 19:05 Cholesterol 209 mg/dL (50-199) H 08/16/17 19:05 LDL Cholesterol Direct 97 mg/dL (50-130) 08/16/17 19:05 HDL Cholesterol 82 mg/dL (40-59) H 08/16/17 19:05 Cholesterol/HDL Ratio 2.54 % 08/16/17 19:05
[2017-08-18] MEDS: PROTONIX PO SCH (18:25)
[2017-08-18] MEDS: LOPRESSOR PO SCH (23:28)
[2017-08-19] MEDS: ZESTRIL PO SCH (00:23)
[2017-08-19] MEDS: PERCOCET 5/325 PO PRN (04:40)
[2017-08-19 05:03] LABS: Basophils % (Auto) 0.4 % (0.0-1.8); Eosinophils % (Auto) 1.8 % (0.0-4.3); Hematocrit 46.1 % (30.3-42.9); Hemoglobin 16.3 gm/dl (10.1-14.3); Mean Corpuscular HGB Conc 35 % (30-34); Mean Corpuscular Hemoglobin 32 pg (28-32); Mean Corpuscular Volume 91 fl (79-97); Platelet Count 245 K/mm3 (140-440); Red Blood Count 5.07 M/mm3 (3.65-5.03); White Blood Count 10.4 K/mm3 (4.5-11.0)
[2017-08-19 05:35] LABS: Anion Gap 15 mmol/L; BUN/Creatinine Ratio 17; Blood Urea Nitrogen 10 mg/dL (7-17); Calcium 8.5 mg/dL (8.4-10.2); Carbon Dioxide 30 mmol/L (22-30); Chloride 101.1 mmol/L (98-107); Glucose 105 mg/dL (65-100); Potassium 3.6 mmol/L (3.6-5.0); Sodium 142 mmol/L (137-145)
[2017-08-19 05:37] LABS: Creatine Kinase MB 2.9 ng/mL (0.0-4.0)
[2017-08-19] MEDS: NACL 0.9% 1000 ML 1,000 ML IV SCH (05:55)
[2017-08-19 06:07] LABS: Creatine Kinase 148 units/L (30-135)
--- NOTE | 2017-08-19 08:21 | XRay Report ---
PORTABLE CHEST INDICATION: Post PCI. COMPARISON: 08/16/2017 FINDINGS: Portable, frontal chest radiograph demonstrates stable cardiomediastinal silhouette, slightly prominent lázaro and crowded bronchovascular markings centrally. Clear lungs without pleural effusions or CHF. EKG leads. Bilateral glenohumeral degenerative changes again noted. CONCLUSION: No acute chest process, stable. Thank you for the opportunity to participate in this patient's care.
[2017-08-19] MEDS ORDERED: PLAVIX PO SCH (10:00)
[2017-08-19] MEDS ORDERED: ZESTRIL PO SCH ×2 (10:01→11:00)
[2017-08-19] MEDS ORDERED: ECOTRIN PO SCH (10:01)
--- NOTE | 2017-08-19 10:04 | Progress Note ---
Assessment and Plan nstemi htn chol acute diastolic dysfunction acute respiratory failure rec: pt is feeling better this am, will ambulate, cont lisinopril and lopressor and norvasc for bp control and lasix as needed and asa and plavix and statin, may discharge today and followup with dr. jennifer haley with pam is the tool clerk. Subjective Date of service: 08/19/17 Principal diagnosis: nstemi Interval history: pt has no chest pain today and nausea are better Objective Vital Signs Temp Pulse Resp BP BP Pulse Ox 08/19/17 07:56 54 L 08/19/17 04:58 170/71 08/19/17 04:41 98.8 F 76 18 141/68 98 08/19/17 00:00 78 08/18/17 23:49 98.3 F 74 20 154/97 100 08/18/17 23:28 92 H 142/72 08/18/17 20:37 97.6 F 73 18 131/62 96 08/18/17 19:15 97.2 F L 72 137/78 08/18/17 18:45 97.6 F 75 18 166/88 98 08/18/17 18:15 97.6 F 76 20 179/94 98 08/18/17 17:53 79 163/91 08/18/17 17:47 81 17 163/91 96 08/18/17 17:44 80 178/94 08/18/17 17:42 80 18 176/90 99 08/18/17 17:27 80 16 178/94 96 08/18/17 17:12 80 24 180/93 98 08/18/17 17:07 78 21 172/93 98 08/18/17 17:02 76 21 174/95 98 08/18/17 16:55 68 20 166/96 98 08/18/17 16:40 63 18 146/89 98 08/18/17 16:35 75 16 175/87 95 08/18/17 16:28 73 20 170/83 96 08/18/17 16:23 73 18 161/90 97 08/18/17 16:18 68 20 164/90 98 08/18/17 16:13 73 18 166/83 98 08/18/17 15:45 70 20 150/93 96 08/18/17 15:29 18 08/18/17 15:18 71 18 156/87 08/18/17 14:45 70 18 175/90 94 08/18/17 14:30 72 20 168/85 93 08/18/17 14:15 61 18 168/86 93 08/18/17 14:06 97.9 F 64 22 160/85 91 - Physical Examination General: Appears Well HEENT: Positive: PERRL, EOMI Neck: Positive: neck supple Cardiac: Positive: Reg Rate and Rhythm Lungs: Positive: clear to auscultation Neuro: Positive: Grossly Intact Abdomen: /Rectal: Normal Prostate, No Masses Skin: Incision: Cardiac Cath Site (right groin no hematoma, soft and brusing. ) Musculoskeletal: No Fluid Collection, No Pain, Normal Range of Motion Gait: Normal Gait Extremities: - Labs and Meds Cardiac Enzymes 08/19/17 Range/Units 04:35 CK-MB (CK-2) 2.9 (0.0-4.0) ng/mL CBC 08/19/17 Range/Units 04:35 WBC 10.4 (4.5-11.0) K/mm3 RBC 5.07 H (3.65-5.03) M/mm3 Hgb 16.3 H D (10.1-14.3) gm/dl Hct 46.1 H D (30.3-42.9) % Plt Count 245 (140-440) K/mm3 Lymph # 2.4 (1.2-5.4) K/mm3 [place] # 0.7 (0.0-0.8) K/mm3 Eos # 0.2 (0.0-0.4) K/mm3 Baso # 0.0 (0.0-0.1) K/mm3 Comprehensive Metabolic Panel 08/19/17 Range/Units 04:35 Sodium 142 (137-145) mmol/L Potassium 3.6 (3.6-5.0) mmol/L Chloride 101.1 (98-107) mmol/L Carbon Dioxide 30 (22-30) mmol/L BUN 10 (7-17) mg/dL Creatinine 0.6 L (0.7-1.2) mg/dL Glucose 105 H (65-100) mg/dL Calcium 8.5 (8.4-10.2) mg/dL - Imaging and Cardiology EKG: image reviewed Echo: report reviewed Cardiac cath: report reviewed (hc via right groin, lt main patent lad mid 100%, lcx patent, ramus patent, om1 30-40%, rca mid 40-50% right to left collaterals and ef 45% anterior apical hypokinesis and pci of lad with charanjit resolute 2.75 x 30mm post 3.25 x 12 mm,) - Telemetry EKG Rhythm: Sinus Rhythm
[2017-08-19] MEDS: NORVASC PO SCH (10:32)
[2017-08-19] MEDS: LOPRESSOR PO SCH (10:32)
[2017-08-19 10:33] VITALS: BP 145/77
[2017-08-19] MEDS: PROTONIX PO SCH (10:33)
--- NOTE | 2017-08-19 10:48 | Discharge Summary ---
Providers - Providers Date of Admission: 08/17/17 01:40 Date of discharge: 08/19/17 Attending physician: DOUGLAS FRANKEL 08/17/17 10:43 Consult to Physician [CONS] Routine Consulting Provider: NAWAF WILSON Reason For Exam: NSTEMI Place consult to:: yes Notified:: in person 08/18/17 Consult to Cardiac Rehabilitation [CONS] Routine Reason For Exam: post pci Primary care physician: SUPERVISORY CLERK Hospitalization Condition: Critical Disposition: DC-01 TO HOME OR SELFCARE Time spent for discharge: 35 min Exam - Constitutional Vitals: Temp Pulse Resp BP Pulse Ox 98.8 F 62 18 145/77 100 08/19/17 04:41 08/19/17 10:32 08/19/17 04:41 08/19/17 10:32 08/19/17 10:00 Plan Activity: advance as tolerated, fall precautions Diet: low cholesterol, low salt Additional Instructions: F/U with your supervisor forming and tempering in 1 week Follow up with: PRIMARY CARE, [Primary Care Provider] - 3-5 Days Prescriptions: AtorvaSTATin [Lipitor] 20 mg PO QHS #30 tablet amLODIPine [Norvasc] 5 mg PO QDAY #30 tablet Aspirin [Aspirin EC] 81 mg PO DAILY #30 tablet. Clopidogrel [Plavix] 75 mg PO QDAY #30 tablet Furosemide [Lasix TAB] 40 mg PO QWEEK 30 Days Lisinopril [Zestril TAB] 20 mg PO QDAY #60 tablet Metoprolol [Lopressor TAB] 50 mg PO BID #60 tablet Potassium Chloride [K-Dur] 10 meq PO QDAY #30 tablet
[2017-08-19] MEDS ORDERED: HALFPRIN EC PO SCH (11:00)
== END 2017-08-19 14:46 | disposition home or self-care (01) | DRG 246 ==
LOC: ED 18:27 → 3A 08-17 01:40 → 4A 08-17 07:58
PROVIDERS: ADMIT Internal Medicine Geriatric Medicine; ATTEND Internal Medicine
PROC: 4A023N7 Measurement of Cardiac Sampling and Pressure, Left Heart, Percutaneous Approach (ICD-10-PCS; principal; 2017-08-18)
PROC: 027034Z Dilation of Coronary Artery, One Artery with Drug-eluting Intraluminal Device, Percutaneous Approach (ICD-10-PCS; 2017-08-18)
PROC: B2111ZZ Fluoroscopy of Multiple Coronary Arteries using Low Osmolar Contrast (ICD-10-PCS; 2017-08-18)
PROC: B2151ZZ Fluoroscopy of Left Heart using Low Osmolar Contrast (ICD-10-PCS; 2017-08-18)
PROC: B3101ZZ Fluoroscopy of Thoracic Aorta using Low Osmolar Contrast (ICD-10-PCS; 2017-08-18)
PROC: 3E0234Z Introduction of Serum, Toxoid and Vaccine into Muscle, Percutaneous Approach (ICD-10-PCS; 2017-08-18)
DX: I21.4 Non-ST elevation (NSTEMI) myocardial infarction (principal); J96.00 Acute respiratory failure, unspecified whether with hypoxia or hypercapnia; Z68.41 Body mass index [BMI] 40.0-44.9, adult; R73.9 Hyperglycemia, unspecified; E66.9 Obesity, unspecified; I11.0 Hypertensive heart disease with heart failure; E87.6 Hypokalemia; E78.5 Hyperlipidemia, unspecified; J45.909 Unspecified asthma, uncomplicated; Z68.38 Body mass index [BMI] 38.0-38.9, adult; Z82.49 Family history of ischemic heart disease and other diseases of the circulatory system; Z23 Encounter for immunization
CPT/HCPCS: 36415; 71010; 71020; 74176; 80048; 80053; 80061; 82550; 82553; 83036; 83880; 84484; 85014; 85018; 85025; 85049; 85347; 85520; 85610; 85730; 90732; 92928; 92978; 93005; 93010; 93306; 93458; 94760; 96374; 96375; A9270-GY; C1725; C1753; C1769; C1874; C1887; C1894; C9600; J0360; J0583; J1644; J2250; J2270; J2405; J3010; J3246; J7030; Q9967